=== PATIENT | male | born 1985 | race African-American/Black ===

== ENCOUNTER 2018-02-01 07:56 | Emergency (ER) | payer OTHER ==
[2018-02-01 08:17] VITALS: BP 142/79; PULSE 65; TEMP 98.6; BMI 33.4
[2018-02-01] MEDS ORDERED: KETOROLAC TROMETHAMINE 60 MG/2 ML VIAL IM ONE (09:35)
[2018-02-01] MEDS ORDERED: KETOROLAC TROMETHAMINE 60 MG/2 ML VIAL ONE (09:41)
--- NOTE | 2018-02-01 09:42 | PDOC ---
History of Present Illness - General Chief Complaint: Injury Stated Complaint: RIGHT ARM INJURY Time Seen by Provider: 02/01/18 08:42 - History of Present Illness Initial Comments: 02/01/18 09:35 CHIEF COMPLAINT: R arm pain HISTORY OF PRESENT ILLNESS: 32 yo M with no PMH presents to fast track with pain to R arm s/p work injury. 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 PAST MEDICAL HISTORY: Denies past medical history FAMILY HISTORY: Denies SOCIAL HISTORY: Denies tobacco, alcohol, illicit drug use. SURGICAL HISTORY: Denies ALLERGIES: No known drug allergies REVIEW OF SYSTEMS General/Constitutional: Denies fever or chills. Denies weakness. HEENT: Denies change in vision. Denies ear pain or discharge. Denies sore throat. Cardiovascular: Denies chest pain or shortness of breath. Respiratory: Denies cough, wheezing, or hemoptysis. Gastrointestinal: Denies nausea, vomiting, diarrhea or constipation. Denies rectal bleeding. Genitourinary: Denies dysuria, frequency, or change in urination. Musculoskeletal: R arm pain. Denies joint or muscle swelling or pain. Denies neck or back pain. Skin and breasts: Denies rash or easy bruising. PHYSICAL EXAM General Appearance: Well-appearing, appropriately dressed. No apparent distress , no intoxication. HEENT: EOMI, PERRLA, normal ENT inspection, normal voice, TMs normal, pharynx normal. No conjunctival pallor. No photophobia, scleral icterus. Neck: Supple. Trachea midline. No tenderness, rigidity, carotid bruit, stridor , lymphadenopathy, or thyromegaly. Respiratory/Chest: Lungs CTAB. Cardiovascular: RRR. S1, S2. Gastrointestinal/Abdominal: Normal bowel sounds. Abdomen soft, non-distended. No tenderness or rebound tenderness. No organomegaly, pulsatile mass, guarding , hernia, hepatomegaly, splenomegaly. Musculoskeletal/Extremities: Swelling and tenderness to proximal forearm. Swelling and tenderness to fingers between DIP and MCPs. Normal inspection. FROM of all extremities, normal capillary refill. Pelvis Stable. No CVA tenderness. No tenderness to extremities, pedal edema, swelling, erythema or deformity. Integumentary: Appropriate color, dry, warm. No cyanosis, erythema, jaundice or rash Neurologic: canal structure operator II-XII intact. Fully oriented, alert. Appropriate mood/affect. Motor strength 5/5. No appreciable EOM palsy, facial droop or sensory deficit. Past History - Past Medical History Allergies/Adverse Reactions: Allergies Allergy/AdvReac Type Severity Reaction Status Date / Time No Known Allergies Allergy Verified 02/01/18 08:12 Home Medications: Ambulatory Orders Naproxen 375 mg PO BID #14 tablet 02/01/18 Anemia: Yes (sickle cell trait) COPD: No - Immunization History Immunization Up to Date: Yes - Suicide/Smoking/Psychosocial Hx Smoking History: Former smoker Have you smoked in the past 12 months: No Information on smoking cessation initiated: No Hx Alcohol Use: No Drug/Substance Use Hx: No Substance Use Type: None *Physical Exam - Vital Signs Last Vital Signs Temp Pulse Resp BP Pulse Ox 98.6 F 65 19 142/79 98 02/01/18 08:13 02/01/18 08:13 02/01/18 08:13 02/01/18 08:13 02/01/18 08:13 ED Treatment Course - RADIOLOGY Radiology Studies Ordered: Category Date Time Status FOREARM- RIGHT [RAD] Stat Radiology 02/01/18 09:12 Taken HUMERUS-RIGHT [RAD] Stat Radiology 02/01/18 08:46 Completed WRIST W/HAND-RIGHT* [RAD] Stat Radiology 02/01/18 08:46 Completed Medical Decision Making - Medical Decision Making 02/01/18 09:42 32 yo M with no PMH presents to fast track with pain to R arm s/p work injury. *DC/Admit/Observation/Transfer Diagnosis at time of Disposition: Arm injury Qualifiers: Encounter type: initial encounter Laterality: right Qualified Code(s): S49.91XA - Unspecified injury of right shoulder and upper arm, initial encounter - Discharge Dispostion Disposition: HOME Condition at time of disposition: Stable Admit: No - Prescriptions Prescriptions: Naproxen 375 mg PO BID #14 tablet - Referrals Referrals: Chad Pappas MD [Staff Physician] - - Patient Instructions Printed Discharge Instructions: How To Perform RICE (Rest, Ice, Compress, Elevate), DI for Arm Pain Additional Instructions: Please take medications as prescribed and follow the RICE therapy instructions provided. Follow up with orthopedics by then end of the week for further evaluation and possible physical therapy. If you develop any new or worsening pain, please return to the ER. - Post Discharge Activity Forms/Work/School Notes: Back to Work
== END 2018-02-01 10:07 | disposition home or self-care (01) ==
LOC: JERFT 07:56
PROC: 3E0233Z Introduction of Anti-inflammatory into Muscle, Percutaneous Approach (ICD-10-PCS; principal; 2018-02-01)
DX: S49.91XA Unspecified injury of right shoulder and upper arm, initial encounter (principal); Y93.89 Activity, other specified; W31.89XA Contact with other specified machinery, initial encounter; Y92.89 Other specified places as the place of occurrence of the external cause; Y99.0 Civilian activity done for income or pay; Z87.891 Personal history of nicotine dependence
CPT/HCPCS: 73060-TC-RT-FY; 73090-TC-RT-FY; 73110-TC-RT-FY; 73130-TC-RT-FY; 99281-25

== ENCOUNTER 2021-07-24 12:39 | Emergency (ER) | payer OTHER ==
[2021-07-25 14:11] LABS: SARS-CoV-2 NAA Not Detected (Not Detected)
== END 2021-07-24 12:45 | disposition home or self-care (01) ==
LOC: JVIRT 12:39
DX: R06.02 Shortness of breath (principal); Z20.822 Contact with and (suspected) exposure to COVID-19
CPT/HCPCS: C9803; Q3014-GT; U0003; U0005

== ENCOUNTER 2025-06-01 12:56 | Emergency (ER) | payer BC, OTHER ==
[2025-06-01 13:13] VITALS: BP 126/84; PULSE 83; RESP 14; TEMP 99; BMI 30.4
[2025-06-01] MEDS ORDERED: ALBUTEROL SO4 2.5/IPRATROPIUM 0.5 INH SOL 3 ML VIAL.NEB. NEB ONE (14:02)
[2025-06-01] MEDS: ALBUTEROL SO4 2.5/IPRATROPIUM 0.5 INH SOL 3 ML VIAL.NEB. NEB ONE (14:08)
== END 2025-06-01 14:58 | disposition home or self-care (01) ==
LOC: JERFT 12:56
PROC: 3E0F7GC Introduction of Other Therapeutic Substance into Respiratory Tract, Via Natural or Artificial Opening (ICD-10-PCS; principal; 2025-06-01)
DX: J40 Bronchitis, not specified as acute or chronic (principal); R05.9 Cough, unspecified; R06.02 Shortness of breath
CPT/HCPCS: 71046-TC-FY; 87637-QW; 99284-25